=== PATIENT | female | born 1950 | race Caucasian/White ===

== ENCOUNTER 2021-06-21 06:29 | Day surgery (SDC) | payer OTHER, SELFPAY ==
[~2021-06-21] VITALS: Ht 157.5 cm; Wt 61.2 kg
[2021-06-21] MEDS ORDERED: LEVOFLOXACIN IN DEXTROSE 5 % 100 ML IV ONE ×2 (07:00→07:08)
[2021-06-21] MEDS ORDERED: CLINDAMYCIN PHOS IV ONE ×2 (07:00)
[2021-06-21] MEDS ORDERED: D5W IV ONE ×2 (07:00)
[2021-06-21] MEDS ORDERED: CLINDAMYCIN 600 mg/50mL D5W 50 ML IV ONE (07:08)
[2021-06-21] MEDS ORDERED: LR 1,000 ML IV SCH (08:00)
[2021-06-21] MEDS ORDERED: OXYCODONE/ACETAMINOPHEN 5-325 TABLET PO PRN (08:00)
[2021-06-21] MEDS ORDERED: MEPERIDINE HCL/PF 25 MG/ML DISP.SYRIN IVP PRN (08:00)
[2021-06-21] MEDS ORDERED: fentaNYL CITRATE/PF 100 MCG/2 ML AMP IVP PRN (08:00)
[2021-06-21] MEDS ORDERED: PROPOFOL 200MG/ 20ML VIAL (DIPRIVAN) IV ONE (10:00)
[2021-06-21] MEDS ORDERED: ROCURONIUM BROMIDE 10 MG/ML (ZEMURON) ONE (10:00)
[2021-06-21] MEDS ORDERED: MEPERIDINE 50 MG/ML VIAL ONE (10:00)
[2021-06-21] MEDS ORDERED: fentaNYL CITRATE/PF 100 MCG/2 ML AMP ONE (10:00)
[2021-06-21] MEDS ORDERED: ONDANSETRON HCL 4 MG/2 ML VIAL ONE (10:00)
[2021-06-21] MEDS ORDERED: ePHEDrine sulfate 50 MG/ML VIAL ONE (10:00)
[2021-06-21] MEDS ORDERED: SUCCINYLCHOLINE CHLORIDE 20 MG/ML(QUELICIN) ONE (10:00)
[2021-06-21] MEDS ORDERED: DEXAMETHASONE SOD PHOSPHATE 4 MG/ML VIAL ONE (10:00)
[2021-06-21] MEDS ORDERED: PHENYLEPHRINE HCL 10 MG/ML VIAL (NEOSYNEPHRINE) ONE (10:00)
[2021-06-21] MEDS ORDERED: BUPIVACAINE /EPINEPHRINE/PF 0.5% 30 ML VIAL INJ ONE (10:00)
[2021-06-21] MEDS ORDERED: GLYCOPYRROLATE 0.2 MG/ML VIAL ONE (10:00)
[2021-06-21] MEDS ORDERED: SEVOFLURANE 15 MIN GAS INH ONE (10:00)
[2021-06-21] MEDS ORDERED: NS 1000 ML IV.SOLN IV ONE (10:00)
[2021-06-21] MEDS ORDERED: LIDOCAINE 1% 10 MG/ML, 20 ML MDV ONE (10:00)
[2021-06-21] MEDS ORDERED: LR 1,000 ML IV.SOLN IV ONE (10:00)
[2021-06-21] MEDS ORDERED: METOCLOPRAMIDE HCL 10 MG/2 ML VIAL ONE (10:00)
[2021-06-21] MEDS ORDERED: NS IRRIG SOLN 1000 ML IR ONE (10:00)
[2021-06-21 12:39] VITALS: BP_SYST 132
== END 2021-06-21 11:22 | disposition home or self-care (01) ==
LOC: SDS 06:29 → SMU 06:31 → SDS 11:22
PROVIDERS: ATTEND Surgery
DX: K81.1 Chronic cholecystitis (principal); R11.0 Nausea; I10 Essential (primary) hypertension; F17.200 Nicotine dependence, unspecified, uncomplicated; Z88.0 Allergy status to penicillin; Z20.822 Contact with and (suspected) exposure to COVID-19; Z79.899 Other long term (current) drug therapy
CPT/HCPCS: 47563; 74300; 88304; C1727; C1758; J1956; J3490; Q9967; U0003; 76000; J0330; J1100; J2001; J2175; J2370; J2405; J2704; J2765; J3010; J7030; J7060; J7120